=== PATIENT | female | born 1940 | race Two or more races ===

== ENCOUNTER → 2021-04-26 | Outpatient (CLI) | payer MEDICARE ==
[2016-07-17 14:10] VITALS: BP 137/70
[~2021-04-26] MED LIST: HYDR-2761 PO; IBUP200T77 PO
[2021-04-26 14:18] LABS: BASO % 1 % (0-3); EOS % 1 % (0-3); HEMOGLOBIN 12.6 g/dL (12.0-15.5); LYMPH # 1.3 x10^3/uL (1.0-4.8); LYMPH % 31 % (24-48); MEAN CORPUSCULAR HEMOGLOBIN 32 pg (25-35); MEAN CORPUSCULAR HGB CONC 34 g/dL (31-37); MEAN CORPUSCULAR VOLUME 92 fL (79-100); MONO # 0.3 x10^3/uL (0.0-1.1); MONO % 6 % (0-9); NEUT # 2.6 x10^3/uL (1.8-7.7); NEUT % 61 % (31-73); PLATELET COUNT 95 x10^3/uL (140-400); RED BLOOD COUNT 4.01 x10^6/uL (3.50-5.40); RED CELL DISTRIBUTION WIDTH 13.8 % (11.5-14.5); WHITE BLOOD COUNT 4.2 x10^3/uL (4.0-11.0)
[2021-04-27 17:16] LABS: KAPPA FREE 53.2 mg/L (3.3-19.4); KAPPA LAMBDA RATIO 1.19 (0.26-1.65); LAMBDA FREE 44.6 mg/L (5.7-26.3)
[2021-04-28 14:11] LABS: ALBUM 3.9 g/dL (2.9-4.4); ALPHA 1 0.3 g/dL (0.0-0.4); ALPHA 2 0.7 g/dL (0.4-1.0); GAMMA 1.5 g/dL (0.4-1.8); PROTEIN TOTAL 7.4 g/dL (6.0-8.5); SPEP AG RATIO 1.1 (0.7-1.7)
== END ==
LOC: ONCLAB 13:40
PROVIDERS: ATTEND Internal Medicine Hematology & Oncology
DX: D69.6 Thrombocytopenia, unspecified (principal)
CPT/HCPCS: 36415; 82607; 82668; 82746; 83010; 83520; 84165; 85025; 86703; 86704; 86705; 86709; 86803; 87340

== ENCOUNTER → 2021-05-09 | Outpatient (CLI) | payer MEDICARE ==
[2016-07-17 14:10] VITALS: BP 137/70
--- NOTE | 2021-05-10 09:42 | RAD ---
EXAM: RENAL ULTRASOUND CLINICAL HISTORY: DECREASED RENAL FUNCTION COMPARISON: None available. TECHNIQUE: Ultrasound examination of the bilateral kidneys and urinary bladder was performed. FINDINGS: The right kidney measures 8.4 cm. Left kidney measures 10.4 cm. The right kidney is atrophic with renal cortical thinning and increased echogenicity. The left kidney is normal in thickness and cortical echogenicity. No left or right renal lesion. No left or right hy dronephrosis. Complex cystic structure is seen just cephalad to the bladder measuring 6.4 x 6.2 x 5.3 cm. IMPRESSION: Complex cystic structure cephalad to the bladder measuring 6.4 cm. This may represent a cystic mass o r loops of fluid distended bowel. Further evaluation with CT is recommended. Electronically signed by: Raffi Briggs MD (05/10/2021 9:40 AM) [id number]
== END ==
LOC: US 15:55
PROVIDERS: ATTEND Family Medicine
DX: N26.1 Atrophy of kidney (terminal) (principal); N28.9 Disorder of kidney and ureter, unspecified
CPT/HCPCS: 76770

== ENCOUNTER → 2021-06-19 | Outpatient (CLI) | payer MEDICARE ==
[2016-07-17 14:10] VITALS: BP 137/70
--- NOTE | 2021-06-22 16:11 | PATHOLOGY ---
[facility] Accession Number: [id number] . 01 Material submitted: . nose - SUPERIOR NASAL LESION. Modifiers: superior . 01 Clinician provided ICD-10: L98.9 . 01 Clinical history: . PATHOLOGY SPECIMEN LESION OF SKIN-NOSE . 02 Diagnosis: Skin and subcutaneous adipose and skeletal muscle tissue, superior nasal lesion excision: - Basal cell carcinoma, focally involving an inked side margin; remaining side, tip, and deep margins of resection negative for tumor. ([facility]; 06/22/2021) QTP 06/22/2021 1548 Local . 02 Electronically signed: . Ishmael Flores MD, Pathologist NPI- [id number] . 01 Gross description: . The specimen is received in formalin, labeled "Linda Bond, superior nasal lesion". Received is an irregular excision of skin measuring 1.6 x 0.7 x 0.6 cm in greatest dimensions. The epidermal surface displays a poorly defined, irregular in contour, hoffman-brown, disrupted lesion measuring 0.6 x 0.5 cm. The surgical margin is inked. Specimen is sectioned into 6 pieces and entirely submitted in cassette A1-A2, with the apparent tips placed in cassette A2. ([facility]; 06/21/2021) NRI/NRI 06/21/2021 1436 Local . 02 Pathologist provided ICD-10: C44.311 . 02 CPT . 332600 Specimen Comment: A courtesy copy of this report has been sent to [phone] Specimen Comment: [phone] Specimen Comment: Report sent to / DR GARY Performed at: [address], [place] [id number] MD Hieu Yu MD Phone: [phone] Performed at: [address] [id number] MD Ishmael Flores MD Phone: [phone]
== END ==
LOC: SPEC 15:44
PROVIDERS: ATTEND Plastic Surgery
DX: C44.311 Basal cell carcinoma of skin of nose (principal); L98.9 Disorder of the skin and subcutaneous tissue, unspecified
CPT/HCPCS: 88305

== ENCOUNTER → 2021-07-17 | Outpatient (CLI) | payer MEDICARE ==
[2016-07-17 14:10] VITALS: BP 137/70
--- NOTE | 2021-07-20 16:07 | PATHOLOGY ---
[facility] Accession Number: [id number] . 01 Material submitted: . nose - RE-EXCISION NASAL BASAL CELL CA . 01 Clinician provided ICD-10: C44.311 . 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 - Inked margins of excision free of neoplasm. - Solar degeneration. ([facility]PM:[facility]; 07/20/2021) QMS 07/20/2021 0907 Local . 02 Electronically signed: . Ishmael Flores MD, Pathologist NPI- [id number] . 01 Gross description: . Received in formalin labeled "Bond, Linda, nasal BCC" is an unoriented ellipse of skin with a centrally located stitch measuring 1.2 x 0.5 x 0.4 cm. The skin surface displays a poorly defined, slightly depressed, and pale laird previous biopsy site measuring 0.4 x 0.2 cm. The margin is inked and the specimen is sectioned into 7 pieces. The specimen is submitted entirely in A1 to A2, with the tips in the last cassette. . Also received within the specimen container is a shave biopsy measuring 0.5 x 0.2 x 0.1 cm in greatest dimensions. The epidermal surface is light laird and grossly unremarkable. The apparent surgical margin is inked. The specimen is intact and placed in cassette A3.([facility]; 07/19/2021) [facility] 07/19/2021 1102 Local . 02 Pathologist provided ICD-10: L08.9, L92.3, L90.5 . 02 CPT . 656610 Specimen Comment: A courtesy copy of this report has been sent to [phone] Specimen Comment: [phone] Specimen Comment: Report sent to / DR GARY Performed at: 01 [facility] [address] [id number] MD Hieu Yu MD Phone: [phone] Performed at: 02 [facility] [address] [place], [place] [id number] MD Ishmael Flores MD Phone: [phone]
== END ==
LOC: SPEC 14:39
PROVIDERS: ATTEND Plastic Surgery
DX: C44.311 Basal cell carcinoma of skin of nose (principal)
CPT/HCPCS: 88305